=== PATIENT | female | born 1945 | race Caucasian/White ===

== ENCOUNTER 2022-12-24 22:18 | Inpatient (IN) | payer MEDICARE, OTHER ==
[~2022-12-24] VITALS: Ht 157.5 cm; Wt 75.3 kg
--- NOTE | 2022-12-24 22:25 | NUR ---
BIBSON FOR C/O [facility]STERNAL C/P 1700 ONSET AFTER EATING DINNER. HX OF DE W/ STENT. PT AAOX4, LAYING IN BED, IN NAD. VITALS CHECKED.
[2022-12-24] MEDS ORDERED: LIDOCAINE VISCOUS 2% UD 15 ML UDC MM ONE (22:30)
[2022-12-24] MEDS ORDERED: MAG HYDROX/AL HYDROX/SIMETH 30 ML UDC PO ONE (22:30)
[2022-12-24] MEDS ORDERED: ONDANSETRON HCL/PF 4 MG/2 ML VIAL IVP ONE (22:30)
--- NOTE | 2022-12-24 22:30 | NUR ---
BLOOD WORK COLLECTED, SENT TO LAB
[2022-12-24] MEDS ORDERED: ONDANSETRON HCL/PF 4 MG/2 ML VIAL ONE (22:42)
[2022-12-24] MEDS ORDERED: MAG HYDROX/AL HYDROX/SIMETH 30 ML UDC ONE (22:42)
--- NOTE | 2022-12-24 22:45 | NUR ---
22GA TO LEFT HAND ESTABLISHED
[2022-12-24 23:13] LABS: CALCIUM, SERUM 10.7 mg/dL (8.5-10.1); CARBON DIOXIDE 29 mmol/L (21-32); CHLORIDE 102 mmol/L (98-107); CREATININE 0.8 mg/dL (0.6-1.3); GLUCOSE 142 mg/dL (74-106); POTASSIUM 3.9 mmol/L (3.5-5.1); SODIUM SERUM 140 mmol/L (136-145); UREA NITROGEN, BLOOD 13 mg/dL (7-18)
--- NOTE | 2022-12-24 23:16 | NUR ---
TO CT W/ TECH
[2022-12-24 23:20] LABS: BASOPHILS # (AUTO) 0.1 K/uL (0.0-0.2); BASOPHILS % (AUTO) 0.7 % (0.0-2.0); EOSINOPHILS % (AUTO) 0.3 % (0.0-6.0); HEMATOCRIT 44 % (33-45); HEMOGLOBIN 14.3 g/dL (11.5-14.8); LYMPHOCYTES # (AUTO) 0.8 K/uL (0.8-4.8); LYMPHOCYTES % (AUTO) 6.6 % (20.0-44.0); MEAN CORPUSCULAR HGB CONC 32 g/dl (31.0-36.0); MEAN CORPUSCULAR VOLUME 86 fL (82-100); MONOCYTES # (AUTO) 0.4 K/uL (0.1-1.30); NEUTROPHILS # (AUTO) 10.5 K/uL (1.8-8.9); NEUTROPHILS % (AUTO) 89.4 % (43.0-81.0); PLATELET COUNT (AUTO) 172 K/uL (150-450); RED BLOOD CELL COUNT(AUTO) 5.16 MIL/uL (4.0-5.2); WHITE BLOOD COUNT (AUTO) 11.7 K/uL (4.3-11.0)
[2022-12-24 23:22] LABS: ALANINE AMINOTRANSFERASE 249 U/L (12-78); ALBUMIN 3.3 g/dL (3.4-5.0); ALKALINE PHOSPHATASE 268 U/L (46-116); ASPARTATE AMINOTRANSFERASE 412 U/L (15-37); BILIRUBIN,DIRECT 1.1 mg/dL (0.0-0.2); BILIRUBIN,TOTAL 1.5 mg/dL (0.2-1.0); LIPASE 125 U/L (73-393); TOTAL PROTEIN, SERUM 6.8 g/dL (6.4-8.2)
--- NOTE | 2022-12-24 23:30 | NUR ---
PT BACK FROM CT
[2022-12-25] MEDS ORDERED: PROCHLORPERAZINE EDISYLATE 10 MG/2 ML VIAL ONE (01:20)
[2022-12-25] MEDS ORDERED: PROCHLORPERAZINE EDISYLATE 10 MG/2 ML VIAL IVP ONE (01:30)
--- NOTE | 2022-12-25 01:37 | NUR ---
COVID SWAB COLLECTED, SENT TO LAB
[2022-12-25] MEDS ORDERED: LANS30CA56 PO (02:17)
[2022-12-25] MEDS ORDERED: ASPI-1498 PO (02:17)
[2022-12-25] MEDS ORDERED: NEBI20TA2 PO ×2 (02:19→02:36)
[2022-12-25] MEDS ORDERED: SPIR25TA6 PO ×2 (02:19→02:36)
[2022-12-25] MEDS ORDERED: PLEC3TAB PO ×2 (02:19→02:36)
[2022-12-25] MEDS ORDERED: AZIL80TA PO ×3 (02:20→02:36)
[2022-12-25] MEDS ORDERED: SITA100T PO ×2 (02:20→02:36)
--- NOTE | 2022-12-25 03:53 | NUR ---
REPORT GIVEN TO MARY ANN VO
--- NOTE | 2022-12-25 04:00 | NUR ---
JUAN CARLOS/EARLENE [phone], FELIX/FORREST [phone]
[2022-12-25 04:33] VITALS: BP 105/57
[2022-12-25 05:09] VITALS: BP 105/57
[2022-12-25] MEDS ORDERED: HYDROCODONE/APAP 5/325MG TABLET PO PRN (05:30)
[2022-12-25] MEDS ORDERED: ACETAMINOPHEN 325 MG TABLET PO PRN (05:30)
[2022-12-25] MEDS ORDERED: Z GUARD REMEDY 4 OZ OINT TP PRN (05:30)
[2022-12-25] MEDS ORDERED: ZOLPIDEM TARTRATE 5 MG TABLET PO PRN (05:30)
[2022-12-25] MEDS ORDERED: MAG HYDROX/AL HYDROX/SIMETH 30 ML UDC PO PRN (05:30)
[2022-12-25] MEDS ORDERED: MORPHINE SULFATE INJ 2 MG/ML DISP.SYRIN IV PRN (05:30)
[2022-12-25] MEDS ORDERED: MAGNESIUM HYDROXIDE 30 ML UDC PO PRN (05:30)
[2022-12-25] MEDS ORDERED: DEXTROSE 50%-WATER 50 ML DISP.SYRIN IV PRN (05:30)
[2022-12-25] MEDS ORDERED: ONDANSETRON HCL/PF 4 MG/2 ML VIAL IVP PRN (05:30)
[2022-12-25] MEDS: BLOOD SUGAR DIAGNOSTIC 1 EACH STRIP IN SCH ×4 (05:53→22:06)
--- NOTE | 2022-12-25 06:13 | NUR ---
alert and orientate X4 Zimbabwean speaking g bag of meds at he bedside she wants her son to come and take them home she is aware not to take her own medication NPO as ordered scheduled for MRCP today Asked her what happens when she takes codeine she statred she become nauseated No N/V since arriving to the floor at 0400 AM denies pain. 3+ edema in the ankles and legs own walker at the bedside
[2022-12-25 06:23] LABS: BASOPHILS # (AUTO) 0.1 K/uL (0.0-0.2); BASOPHILS % (AUTO) 0.4 % (0.0-2.0); HEMATOCRIT 42 % (33-45); HEMOGLOBIN 13.8 g/dL (11.5-14.8); LYMPHOCYTES # (AUTO) 0.1 K/uL (0.8-4.8); LYMPHOCYTES % (AUTO) 0.9 % (20.0-44.0); MEAN CORPUSCULAR HGB CONC 33 g/dl (31.0-36.0); MEAN CORPUSCULAR VOLUME 86 fL (82-100); MONOCYTES # (AUTO) 0.4 K/uL (0.1-1.30); MONOCYTES % (AUTO) 2.7 % (2.0-12.0); PLATELET COUNT (AUTO) 131 K/uL (150-450); RED BLOOD CELL COUNT(AUTO) 4.93 MIL/uL (4.0-5.2); WHITE BLOOD COUNT (AUTO) 14.6 K/uL (4.3-11.0)
[2022-12-25 06:42] LABS: ALANINE AMINOTRANSFERASE 425 U/L (12-78); ALKALINE PHOSPHATASE 269 U/L (46-116); ASPARTATE AMINOTRANSFERASE 415 U/L (15-37); BILIRUBIN,TOTAL 3.4 mg/dL (0.2-1.0); CALCIUM, SERUM 10.6 mg/dL (8.5-10.1); CARBON DIOXIDE 28 mmol/L (21-32); CHLORIDE 105 mmol/L (98-107); CREATININE 0.8 mg/dL (0.6-1.3); GLUCOSE 165 mg/dL (74-106); MAGNESIUM 1.7 mg/dL (1.8-2.4); PHOSPHORUS 2.5 mg/dL (2.5-4.9); POTASSIUM 3.6 mmol/L (3.5-5.1); SODIUM SERUM 142 mmol/L (136-145); TOTAL PROTEIN, SERUM 6.2 g/dL (6.4-8.2); UREA NITROGEN, BLOOD 14 mg/dL (7-18)
[2022-12-25 06:48] LABS: CHOLESTEROL 133 mg/dL (<200); HDL CHOLESTEROL 42 mg/dL (40-60); LDL 81 mg/dL (0-99); TRIGLYCERIDES 105 mg/dL (30-150)
[2022-12-25 08:00] VITALS: BP 133/67
--- NOTE | 2022-12-25 08:19 | NUR ---
RN OPENING NOTE RECEIVED PATIENT AWAKE IN BED, A/O X 4. ON ROOM AIR, BREATHING EVEN AND UNLABORED. NO SIGNS OF DISTRESS NOTED. S/S NO PAIN NOTED AT THIS TIME. IV ACCESS AT L HAND #22G, INTACT PATENT AND FLUSHING WELL. FALL AND SAFETY MEASURES IN PLACED, BED LOCKED IN LOWEST POSITION, SIDE RAILS UP X 2, CALL LIGHT AND TABLE WITHIN REACH; WILL CONTINUE TO MONITOR PATIENT THROUGHOUT SHIFT.
[2022-12-25] MEDS: Magnesium 1GM/D5W 100ML PREMIX 100 ML IV SCH ×2 (08:43→08:55)
[2022-12-25] MEDS: ASPIRIN EC 81 MG TABLET.DR PO SCH (08:43)
[2022-12-25] MEDS: LINAGLIPTIN 5 MG TABLET PO SCH (08:44)
[2022-12-25] MEDS: LOSARTAN POTASSIUM 50 MG TABLET PO SCH (08:53)
[2022-12-25] MEDS: PANTOPRAZOLE 40 MG TABLET.DR PO SCH (08:53)
[2022-12-25] MEDS: METOPROLOL TARTRATE 50 MG TABLET PO SCH ×2 (08:54→21:00)
[2022-12-25] MEDS ORDERED: Medication Not On Formulary EA (Plecanatide (Trulance) 3 MG) PO SCH (09:00)
[2022-12-25] MEDS ORDERED: Medication Not On Formulary EA (Sitagliptin Phosphate (Januvia) 100 MG) PO SCH (09:00)
[2022-12-25] MEDS ORDERED: PANTOPRAZOLE 40 MG VIAL IV SCH (09:00)
[2022-12-25] MEDS ORDERED: PANTOPRAZOLE 40 MG/PACK PACK PO SCH (09:00)
[2022-12-25 09:54] LABS: THYROID STIMULATING HORMONE 1.161 uIU/mL (0.358-3.74)
[2022-12-25] MEDS ORDERED: METOPROLOL TARTRATE INJ 5 MG/5 ML AMPUL ONE ×2 (10:56→11:38)
[2022-12-25] MEDS ORDERED: NITROGLYCERIN 0.4 MG/TAB BOTTLE ONE (10:56)
[2022-12-25] MEDS ORDERED: IOHEXOL-350 100 ML VIAL IV ONE ×2 (10:56→11:38)
[2022-12-25] MEDS ORDERED: CT SWABBABLE VALVE TRANS SET 1 EA INFUS.SET MC ONE (10:57)
[2022-12-25] MEDS ORDERED: IV NS 0.9% 250 ML IV ONE (10:57)
[2022-12-25] MEDS: METOPROLOL TARTRATE INJ 5 MG/5 ML AMPUL IVP PRN ×8 (11:05→11:40)
--- NOTE | 2022-12-25 11:11 | NUR ---
RN NOTE DOCTOR YASSINE CALLED, DOCTOR NEED A MRCP, ORDER WAS PLACED. CHARGE NURSE AWARE.
--- NOTE | 2022-12-25 11:30 | NUR ---
RN NOTE PATIENT IS NOT IN HER ROOM PATIENT WENT FOR CTCA, CHARGE NURSE AWARE.
[2022-12-25] MEDS: NITROGLYCERIN 0.4 MG/TAB BOTTLE SL ONE ×2 (11:40→11:59)
--- NOTE | 2022-12-25 12:41 | NUR ---
RN NOTE PATIENT IS BACK IN HER ROOM, PATIENT WENT FOR CTCA, TOLERATED PROCEDURE WILL. PATIENT DENIED ANY PAIN OR DISCOMFORT AT THIS TIME. CHARGE NURSE AWARE. WILL CONTINUE TO MONITOR.
--- NOTE | 2022-12-25 13:15 | NUR ---
RN NOTE PATIENT IS NOT IN HER ROOM PATIENT WENT FOR A MRCP, CHARGE NURSE AWARE.
--- NOTE | 2022-12-25 14:00 | NUR ---
RN NOTE PATIENT IS BACK IN HER ROOM, PATIENT WENT FOR MRCP, TOLERATED PROCEDURE WILL. PATIENT DENIED ANY PAIN OR DISCOMFORT AT THIS TIME. CHARGE NURSE AWARE. WILL CONTINUE TO MONITOR.
[2022-12-25 15:43] LABS: BILIRUBIN,URINE 2+ (NEGATIVE); COLOR,URINE YELLOW (YELLOW); LEUKOCYTE ESTERASE ,URINE NEGATIVE (NEGATIVE); NITRITE, URINE NEGATIVE (NEGATIVE); PH,URINE 7.5 (5.0-8.0); PROTEIN,URINE 1+ mg/dl (NEGATIVE); UGLUCOSE NEGATIVE (NEGATIVE)
[2022-12-25 16:00] VITALS: BP 137/86
[2022-12-25 16:17] LABS: BACTERIA,URINE Few /HPF (None Seen); MUCUS,URINE Moderate /LPF (None Seen); RBC,URINE 0-2 /HPF (0-2); WBC,URINE NONE SEEN /HPF (0-3)
[2022-12-25] MEDS: INSULIN REGULAR, HUMAN 100 UNIT/ML 3 ML VIAL SQ PRN ×2 (17:31→22:06)
--- NOTE | 2022-12-25 17:32 | NUR ---
RN NOTE PATIENT 1700 ACCUCHECK WAS DONE, PATIENT GLUCOSE= 139 PER SLINDING SCALE PATIENT NEEDS 2 UNITS OF INSULIN, PATIENT REFUSED INSULIN, PATIENT AND PATIENT'S SON AT BEDSIDE WERE EDUCATED ON THE RISK AND BENEFITS OF INSULIN.
--- NOTE | 2022-12-25 18:37 | NUR ---
RN NOTE PHARMACY CALLED AND ASKED IF PATIENT CAN PROVIDE MEDICATION TRULANCE FROM HOME. PATIENT WAS ASKED AND SON AT BEDSIDE, PATIENT SAID SHE DOES NOT TAKE THE MEDICATION TRULANCE AT HOME ANYMORE. PHARMACY AWARE.
--- NOTE | 2022-12-25 18:44 | NUR ---
RN CLOSING NOTE PATIENT AWAKE IN BED, A/O X 4. ON ROOM AIR, BREATHING EVEN AND UNLABORED. NO SIGNS OF DISTRESS NOTED. S/S NO PAIN NOTED AT THIS TIME. IV ACCESS AT LAC #20G, INTACT PATENT AND FLUSHING WELL. SCHEDULE MEDICATIONS ADMINISTERED. FALL AND SAFETY MEASURES IN PLACED, BED LOCKED IN LOWEST POSITION, BED ALARM ON, SIDE RAILS UP X 2, CALL LIGHT AND TABLE WITHIN REACH. ALL NEEDS ATTENDED AND ANTICIPATED. WILL ENDORSE TO MANAGER SIGN NURSE.
--- NOTE | 2022-12-25 19:30 | NUR ---
RN opening notes Pt is sitting in bed comfortably accompanied by Pt' daughter and granddaughter. Pt is alert and orientedX4. Pt speaks [place]ican and able to make needs known. On room air. No SOB. No S/S of distress noted. IV site at LAc# 18 is clean, intact and flushes well. safety precautions is maintained. bed at low position, brakes locked, side rails upX2, hob elevated, urinal at the bedside and call light is within reach. will continue to monitor. Addendum: 12/26/22 at 0024 by SYLVIA CASTILLO RN ignore urinal. mistype
[2022-12-25 20:00] VITALS: BP 116/62
--- NOTE | 2022-12-25 21:05 | NUR ---
RN notes Pt signed the ERCP consent per MD ordered. Pt verbalize understanding. Pt's daughter Rhoda [phone]) and granddaughter ([phone])at the bedside.
--- NOTE | 2022-12-25 21:06 | NUR ---
RN notes Pt and Pt's daughter and granddaughter at the bedside. Pt informed No insulin. Pt doesn't takes any insulin at home. Pt granddaughter informed insulin is not good for her, you can check but no insulin. Explained risk and benefits. Will continue to monitor.
--- NOTE | 2022-12-25 21:24 | NUR ---
RN notes Pt's BP 116/62. HR 99. Pt refuses BP meds. Pt and Pt's daughter and Pt's granddaughter refuses. Explained risks and benefits. Will continue to monitor.
--- NOTE | 2022-12-25 22:06 | NUR ---
RN notes Pt's BS 126. Held coverage per level ordered. No S/S of distress noted. Will continue to monitor.
--- NOTE | 2022-12-26 06:30 | NUR ---
RN notes Pt's BS 131. Pt is NPO. will continue to monitor.
[2022-12-26] MEDS: BLOOD SUGAR DIAGNOSTIC 1 EACH STRIP IN SCH ×4 (06:38→21:24)
[2022-12-26] MEDS: INSULIN REGULAR, HUMAN 100 UNIT/ML 3 ML VIAL SQ PRN ×3 (06:39→21:24)
--- NOTE | 2022-12-26 06:40 | NUR ---
RN closing notes Pt is resting in bed comfortbaly. Pt is alert and orientedX4. Pt speaks Dutch and able to make needs known. On room air. No SOB. No S/S of distress noted. VS is stable. IV site at LAc# 18 is clean, intact and flushes well. safety precautions is maintained. NPO. Kept Pt clean, dry and comfortable. bed at low position, brakes locked, side rails upX2, hob elevated, bed alarm is on and call light is within reach. will endorse to am nurse for Pasquale.
--- NOTE | 2022-12-26 07:40 | NUR ---
RN OPENING NOTE RECEIVED PATIENT AWAKE IN BED, A/O X 4. ON ROOM AIR, BREATHING EVEN AND UNLABORED. NO SIGNS OF DISTRESS NOTED. S/S NO PAIN NOTED AT THIS TIME. IV ACCESS AT LAC #18G, INTACT PATENT AND FLUSHING WELL. FALL AND SAFETY MEASURES IN PLACED, BED LOCKED IN LOWEST POSITION, BED ALARM ON, SIDE RAILS UP X 2, CALL LIGHT AND TABLE WITHIN REACH; WILL CONTINUE TO MONITOR PATIENT THROUGHOUT SHIFT.
[2022-12-26 08:40] VITALS: BP 117/63
[2022-12-26] MEDS: LINAGLIPTIN 5 MG TABLET PO SCH (08:48)
[2022-12-26] MEDS: LOSARTAN POTASSIUM 50 MG TABLET PO SCH (08:49)
[2022-12-26] MEDS: METOPROLOL TARTRATE 50 MG TABLET PO SCH ×2 (08:49→20:37)
[2022-12-26] MEDS: ASPIRIN EC 81 MG TABLET.DR PO SCH (08:49)
[2022-12-26] MEDS: PANTOPRAZOLE 40 MG TABLET.DR PO SCH (08:49)
[2022-12-26 09:41] LABS: BASOPHILS % (AUTO) 0.1 % (0.0-2.0); EOSINOPHILS % (AUTO) 0.1 % (0.0-6.0); HEMATOCRIT 37 % (33-45); HEMOGLOBIN 12.5 g/dL (11.5-14.8); LYMPHOCYTES # (AUTO) 0.4 K/uL (0.8-4.8); LYMPHOCYTES % (AUTO) 4.1 % (20.0-44.0); MEAN CORPUSCULAR HGB CONC 34 g/dl (31.0-36.0); MEAN CORPUSCULAR VOLUME 84 fL (82-100); MONOCYTES # (AUTO) 0.4 K/uL (0.1-1.30); MONOCYTES % (AUTO) 4.9 % (2.0-12.0); NEUTROPHILS % (AUTO) 90.8 % (43.0-81.0); PLATELET COUNT (AUTO) 98 K/uL (150-450); RED BLOOD CELL COUNT(AUTO) 4.42 MIL/uL (4.0-5.2); WHITE BLOOD COUNT (AUTO) 8.8 K/uL (4.3-11.0)
[2022-12-26 09:59] LABS: ALANINE AMINOTRANSFERASE 257 U/L (12-78); ALBUMIN 2.5 g/dL (3.4-5.0); ALKALINE PHOSPHATASE 200 U/L (46-116); ASPARTATE AMINOTRANSFERASE 126 U/L (15-37); CARBON DIOXIDE 28 mmol/L (21-32); CHLORIDE 104 mmol/L (98-107); CREATININE 0.5 mg/dL (0.6-1.3); GLUCOSE 139 mg/dL (74-106); MAGNESIUM 1.8 mg/dL (1.8-2.4); PHOSPHORUS 1.6 mg/dL (2.5-4.9); POTASSIUM 3.1 mmol/L (3.5-5.1); SODIUM SERUM 138 mmol/L (136-145); TOTAL PROTEIN, SERUM 5.6 g/dL (6.4-8.2); UREA NITROGEN, BLOOD 10 mg/dL (7-18)
[2022-12-26 10:03] LABS: CHOLESTEROL 133 mg/dL (<200); HDL CHOLESTEROL 21 mg/dL (40-60); LDL 85 mg/dL (0-99); TRIGLYCERIDES 109 mg/dL (30-150)
[2022-12-26 10:48] LABS: BILIRUBIN,TOTAL 2.3 mg/dL (0.2-1.0)
[2022-12-26 15:41] LABS: BAND % (MANUAL) 1 % (0.0-5.0); LYMPHOCYTES % (MANUAL) 3 % (16-48); MONOCYTES % (MANUAL) 4 % (0-11.0); NEUTROPHILS % (MANUAL) 92 (42-76)
[2022-12-26 15:43] VITALS: BP 118/54
--- NOTE | 2022-12-26 16:54 | NUR ---
RN NOTE PATIENT'S ACCU-CHECK BEFORE DINNER WAS DONE, PATIENT SUGAR LEVEL IS 165, PATIENT REFUSED INSULIN. WILL CONTINUE TO MONITOR.
[2022-12-26] MEDS ORDERED: Sodium Phosphate 15 MMOL in IV NS 0.9% 245 ML IV ONE (17:00)
--- NOTE | 2022-12-26 18:51 | NUR ---
RN CLOSING NOTE PATIENT AWAKE IN BED, A/O X 4. ON ROOM AIR, BREATHING EVEN AND UNLABORED. NO SIGNS OF DISTRESS NOTED. S/S NO PAIN NOTED AT THIS TIME. IV ACCESS AT L HAND #22G, INTACT PATENT AND FLUSHING WELL. SCHEDULE MEDICATIONS ADMINISTERED. FALL AND SAFETY MEASURES IN PLACED, BED LOCKED IN LOWEST POSITION, BED ALARM ON, SIDE RAILS UP X 2, CALL LIGHT AND TABLE WITHIN REACH. ALL NEEDS ATTENDED AND ANTICIPATED. WILL ENDORSE TO MORTGAGE LOAN COORDINATOR NURSE.
--- NOTE | 2022-12-26 19:10 | NUR ---
RN opening notes Pt is sitting in bed comfortably accompanied by Pt' son. Pt is alert and orientedX4. Pt speaks Mongolian and able to make needs known. On room air. No SOB. No S/S of distress noted. IV site at L hand # 22 is clean, intact and flushes well. ambulates with assist and walker. safety precautions is maintained. bed at low position, brakes locked, side rails upX2, hob elevated, urinal at the bedside and call light is within reach. Will continue to monitor. Addendum: 12/26/22 at 6 by SYLVIA CASTILLO RN Ignore urinal. mistype.
[2022-12-26 20:00] VITALS: BP 105/64
--- NOTE | 2022-12-26 20:00 | NUR ---
RN notes Pt refuses sodium phospate infusion. explained risks and benefits to Pt and Pt's daughter and granddaughter. Pt keep refusing. will continue to monitor.
--- NOTE | 2022-12-26 20:37 | NUR ---
RN notes Held BP meds for low BP. BP 105/64. HR 72.
--- NOTE | 2022-12-26 21:24 | NUR ---
RN notes Pt's BS is 169. Pt refuses coverage. Pt informed no insulin. Pt's daughter and granddaughter at the bedside. Explained risks and benefits. Pt keep refusing. will continue to monitor.
--- NOTE | 2022-12-26 21:30 | NUR ---
RN notes Pt is having constipation and requesting meds. administered milk of magnesia/po as ordered. safety precautions is maintained. will continue to monitor.
[2022-12-27] MEDS: BLOOD SUGAR DIAGNOSTIC 1 EACH STRIP IN SCH ×2 (06:29→11:46)
[2022-12-27] MEDS: INSULIN REGULAR, HUMAN 100 UNIT/ML 3 ML VIAL SQ PRN (06:30)
--- NOTE | 2022-12-27 06:30 | NUR ---
RN closing notes Pt is resting in bed comfortbaly. Pt is alert and orientedX4. Pt speaks East [place]orese and able to make needs known. On room air. No SOB. No S/S of distress noted. VS is stable. IV site at L hand# 20 is clean, intact and flushes well. safety precautions is maintained. Kept Pt clean, dry and comfortable. bed at low position, brakes locked, side rails upX2, hob elevated, bed alarm is on and call light is within reach. will endorse to am nurse for Pasquale.
[2022-12-27 06:42] LABS: BASOPHILS % (AUTO) 0.2 % (0.0-2.0); EOSINOPHILS % (AUTO) 0.4 % (0.0-6.0); HEMATOCRIT 37 % (33-45); HEMOGLOBIN 12.2 g/dL (11.5-14.8); LYMPHOCYTES # (AUTO) 0.4 K/uL (0.8-4.8); LYMPHOCYTES % (AUTO) 6.9 % (20.0-44.0); MEAN CORPUSCULAR HGB CONC 33 g/dl (31.0-36.0); MEAN CORPUSCULAR VOLUME 85 fL (82-100); MONOCYTES # (AUTO) 0.4 K/uL (0.1-1.30); MONOCYTES % (AUTO) 6.4 % (2.0-12.0); NEUTROPHILS # (AUTO) 5.1 K/uL (1.8-8.9); NEUTROPHILS % (AUTO) 86.1 % (43.0-81.0); PLATELET COUNT (AUTO) 89 K/uL (150-450); RED BLOOD CELL COUNT(AUTO) 4.36 MIL/uL (4.0-5.2); WHITE BLOOD COUNT (AUTO) 5.9 K/uL (4.3-11.0)
[2022-12-27 06:54] LABS: ALANINE AMINOTRANSFERASE 190 U/L (12-78); ALBUMIN 2.4 g/dL (3.4-5.0); ALKALINE PHOSPHATASE 170 U/L (46-116); ASPARTATE AMINOTRANSFERASE 54 U/L (15-37); BILIRUBIN,DIRECT 0.5 mg/dL (0.0-0.2); BILIRUBIN,TOTAL 1.1 mg/dL (0.2-1.0); CARBON DIOXIDE 30 mmol/L (21-32); CHLORIDE 103 mmol/L (98-107); CREATININE 0.5 mg/dL (0.6-1.3); GLUCOSE 132 mg/dL (74-106); POTASSIUM 2.9 mmol/L (3.5-5.1); SODIUM SERUM 138 mmol/L (136-145); TOTAL PROTEIN, SERUM 5.5 g/dL (6.4-8.2); UREA NITROGEN, BLOOD 13 mg/dL (7-18)
--- NOTE | 2022-12-27 07:23 | NUR ---
RN opening notes Pt is sitting in bed awake . Pt is alert and orientedX4. Pt speaks Spanish and able to make needs known. On room air. No SOB. No S/S of distress noted. IV site at L hand # 22 is clean, intact and flushes well. ambulates with assist and walker. safety precautions is maintained. bed at low position, brakes locked, side rails upX2, hob elevated, urinal at the bedside and call light is within reach. Will continue to monitor.
[2022-12-27 07:30] VITALS: BP 136/75
[2022-12-27] MEDS ORDERED: POTASSIUM CHLORIDE 20 MEQ TAB.PRT.SR PO ONE ×2 (07:30→09:00)
[2022-12-27] MEDS: LINAGLIPTIN 5 MG TABLET PO SCH (08:27)
[2022-12-27] MEDS: ASPIRIN EC 81 MG TABLET.DR PO SCH (08:27)
[2022-12-27] MEDS: PANTOPRAZOLE 40 MG TABLET.DR PO SCH (08:28)
[2022-12-27] MEDS: METOPROLOL TARTRATE 50 MG TABLET PO SCH (08:30)
[2022-12-27 08:31] VITALS: BP 136/75
[2022-12-27] MEDS: LOSARTAN POTASSIUM 50 MG TABLET PO SCH (08:31)
[2022-12-27 09:10] LABS: LYMPHOCYTES % (MANUAL) 5 % (16-48); MONOCYTES % (MANUAL) 3 % (0-11.0); NEUTROPHILS % (MANUAL) 92 (42-76)
--- NOTE | 2022-12-27 09:14 | NUR ---
RN NOTES VERIFIED WITH REGARDING THE NEW ORDER OF KCL 80 MEQ BY MOUTH PATIENT WAS ALREADY GIVEN THE 80 MEQ ORDERED AT 0730 , SAID ONLY X1 AND WITH ORDER TO D/C THE NEW ORDER , NOTED AND CARRIED OUT
--- NOTE | 2022-12-27 14:00 | NUR ---
DIAMOND GRINDER ORDER PATIENT WITH ORDER FOR DISCHARGE TO HOME , MEDICALLY CLEARED AND WILL B DEPUTY JUVENILE OFFICER BY SON , ALL DISCHARGE INSTRUCTIONS PROVIDED TO THE SON AND PATIENT , REFUSED REPEAT K LEVEL AND SON AWARE , ALL BELONGINGS WERE TAKEN ADN FORM WAS SIGNED , D/C INSTRUCTIONS PROVIDED REGARDING MEDICATIONS AT HOME , FOLLOW UP WITH PCP AND SAFETY , PATIENT LEFT WITH NO C/O OF PAIN AND DISCOMFORT AND LEF VIA PRIVATE CAR WITH THE SON .
== END 2022-12-27 14:05 | disposition home or self-care (01) | DRG 302 ==
LOC: ER 22:21 → MED 12-25 02:30
PROVIDERS: ADMIT Internal Medicine; ATTEND Internal Medicine
DX: I25.119 Atherosclerotic heart disease of native coronary artery with unspecified angina pectoris (principal); E43 Unspecified severe protein-calorie malnutrition; N13.30 Unspecified hydronephrosis; N13.4 Hydroureter; E11.9 Type 2 diabetes mellitus without complications; E83.52 Hypercalcemia; K21.9 Gastro-esophageal reflux disease without esophagitis; Z95.5 Presence of coronary angioplasty implant and graft; Z88.6 Allergy status to analgesic agent; Z88.5 Allergy status to narcotic agent; E88.09 Other disorders of plasma-protein metabolism, not elsewhere classified; Z90.49 Acquired absence of other specified parts of digestive tract; D72.829 Elevated white blood cell count, unspecified; E83.42 Hypomagnesemia; E87.6 Hypokalemia; I10 Essential (primary) hypertension; K44.9 Diaphragmatic hernia without obstruction or gangrene; K57.90 Diverticulosis of intestine, part unspecified, without perforation or abscess without bleeding; Z79.84 Long term (current) use of oral hypoglycemic drugs; D35.02 Benign neoplasm of left adrenal gland; K83.8 Other specified diseases of biliary tract
CPT/HCPCS: 36415; 71045-TC; 71111-TC; 74181-TC; 75574; 76700-TC; 80048-TC; 80053-TC; 80061-TC; 80076-TC; 81001; 82962-TC; 83690-TC; 83735-TC; 84100-TC; 84439-TC; 84443-TC; 84484-TC; 85025-TC; 85610-TC; 85730-TC; 87081-TC; 93307-TC; A4223; A9563; C9113; G0378; J0780; J1815; J2405; J3475; J3490; J7050; Q9967